=== PATIENT | male | born 1965 | race Caucasian/White ===

== ENCOUNTER 2019-03-05 00:13 | Emergency (ER) | payer BC, OTHER ==
[~2019-03-05] VITALS: Ht 172.7 cm; Wt 104.4 kg
[2019-03-05 00:18] VITALS: BP 153/98; PULSE 84; RESP 18; Ht 172.7 cm; Wt 104.4 kg
--- NOTE | 2019-03-07 15:03 | ERD ---
ER Documentation Chief Complaint Chief Complaint low back pain x 2 months, also c/o blood in urine HPI 53yo M presents with complaint of hematuria and low back pain off and on x 2 months. Last episode of hematuria this morning. Pt notes hx of previous kidney stones 5 years ago and expresses concern over possible stone. Pt denies current back pain, but notes each episode is approximately a 5/10 in intensity. Pt denies any prostate hx, hx of DM, or hx of malignancy or cancer. Denies fevers, chills, SOB, dizziness, vomiting, or diarrhea. ROS All systems reviewed and are negative except as per history of present illness. Allergies Allergies: Coded Allergies: No Known Drug Allergies (Verified Allergy, Unknown, 03/05/19) PMhx/Soc Medical and Surgical Hx: pt denies Surgical Hx Hx Cardiac Disorders: Yes (HTN) Hx Alcohol Use: No Hx Substance Use: No Hx Tobacco Use: No Smoking Status: Never smoker FmHx Family History: No diabetes, No coronary disease, No other Physical Exam Vitals Vital Signs Date Temp Pulse Resp B/P (MAP) Pulse Ox O2 O2 Flow FiO2 Time Delivery Rate 03/05/19 97.8 84 18 153/98 97 00:18 (116) Physical Exam GEN: Alert and coherent. Well appearing, non-toxic. No acute distress. HEAD: Normocephalic, atraumatic. EYES: EOMI. PERRL. No conjunctival injection. No scleral icterus. No Discharge ENT: Nasal passages patent. Moist mucous membranes. No erythema or tonsillar exudates. NECK: Supple. Full range of motion. Trachea midline. No lymphadenopathy. RESP: No tachypnea. Clear to auscultation bilaterally. No wheezing, rales or rhonchi. No accessory muscle use. CV: Regular rate and rhythm. No murmurs, rubs, or gallops. ABD: Soft, non-distended, non-tender. No guarding. No rebound tenderness or rigidity. No masses. Positive bowel sounds in all four quadrants. BACK: Full ROM. No CVA tenderness. NEURO: Alert and oriented x3. Appropriate speech, mood and affect. Face is symmetric. Speech is normal. CN II-XII intact. Moves all extremities equally. Ambulates with a strong, steady gait. Result Diagram: 03/05/19 0140 03/05/19 0140 Results 24 hrs Laboratory Tests Test 03/05/19 01:40 White Blood Count 6.4 10^3/ul Red Blood Count 5.06 10^6/ul Hemoglobin 15.3 g/dl Hematocrit 44.7 % Mean Corpuscular Volume 88.3 fl Mean Corpuscular Hemoglobin 30.2 pg Mean Corpuscular Hemoglobin Concent 34.2 g/dl Red Cell Distribution Width 11.9 % Platelet Count 249 10^3/UL Mean Platelet Volume 9.9 fl Immature Granulocytes % 0.300 % Neutrophils % 31.4 % Lymphocytes % 50.5 % Monocytes % 14.5 % Eosinophils % 2.2 % Basophils % 1.1 % Nucleated Red Blood Cells % 0.0 /100WBC Immature Granulocytes # 0.020 10^3/ul Neutrophils # 2.0 10^3/ul Lymphocytes # 3.3 10^3/ul Monocytes # 0.9 10^3/ul Eosinophils # 0.1 10^3/ul Basophils # 0.1 10^3/ul Nucleated Red Blood Cells # 0.0 10^3/ul Prothrombin Time 12.1 Sec Prothrombin Time Ratio 0.9 INR International Normalized Ratio 0.89 Activated Partial Thromboplast Time 29.8 Sec Urine Color YELLOW Urine Clarity CLEAR Urine pH 6.0 Urine Specific [place] 1.023 Urine Ketones NEGATIVE mg/dL Urine Nitrite NEGATIVE mg/dL Urine Bilirubin NEGATIVE mg/dL Urine Urobilinogen 1+ mg/dL Urine Leukocyte Esterase NEGATIVE James/ul Urine Hemoglobin NEGATIVE mg/dL Urine Glucose NEGATIVE mg/dL Urine Total Protein NEGATIVE mg/dl Sodium Level 145 mmol/L Potassium Level 3.8 mmol/L Chloride Level 106 mmol/L Carbon Dioxide Level 26 mmol/L Anion Gap 13 Blood Urea Nitrogen 15 mg/dl Creatinine 0.73 mg/dl Est Glomerular Filtrat Rate mL/min > 60 mL/min Glucose Level 118 mg/dl Calcium Level 9.7 mg/dl Total Bilirubin 0.7 mg/dl Direct Bilirubin 0.00 mg/dl Indirect Bilirubin 0.7 mg/dl Aspartate Amino Transf (AST/SGOT) 32 IU/L Alanine Aminotransferase (ALT/SGPT) 33 IU/L Alkaline Phosphatase 103 IU/L Total Protein 8.0 g/dl Albumin 4.5 g/dl Globulin 3.50 g/dl Albumin/Globulin Ratio 1.28 Lipase 67 U/L Procedures/MDM PROCEDURE: CT ABDOMEN/PELVIS WITHOUT CONTRAST FINDINGS: There is mild bibasilar subsegmental atelectasis. There is no evidence for significant pleural effusion. The liver has a normal size and contour without focal areas of abnormal density. No intrahepatic nor extrahepatic biliary ductal dilatation is seen. The gallbladder demonstrates no wall thickening nor marielena cholecystic fluid. No biliary stones are evident. The pancreas is without areas of abnormal attenuation. The spleen is identified and has a normal size without abnormal density. The adrenal glands are unremarkable. The kidneys are without abnormal density. No hydroureteronephrosis nor nephroureterolithiasis is evident. The urinary bladder contains urine. There is no evidence for bowel obstruction. There are a few small diverticula within the ascending colon without surrounding inflammatory changes. The appendix is visualized and is without abnormal thickening or surrounding inflammatory reaction. There is no significant pelvic free fluid. The prostate is not enlarged however there are small central calcifications within it. The aortoiliac vessels are without aneurysmal dilatation. Degenerative changes are seen within the spine. IMPRESSION: 1. Minimal ascending colon diverticulosis. 2. No CT evidence for appendicitis. 3. Degenerative changes within the spine. MDM: This is a 53yo M who presents to the ED for low back pain and blood in urine off and on x 2 months. On exam no CVA tenderness and Urinalysis unremarkable for Hematuria. CT imaging negative for nephrolithiasis, and shows minimal diverticulosis of the ascending colon. Given normal vitals, unremarkable exam, negative lab findings, and non-emergent CT findings, pt is stable for discharge with outpatient management. Pt counseled regarding diet. Advised to f/u PCP for management of diverticulosis and need for possible referral to urology for management of hematuria if continues. Pt expressed verbal understanding and agreement to treatment plan. All questions addressed and answered. Departure Diagnosis: Primary Impression: Diverticulosis Condition: Stable Patient Instructions: Diverticulosis [facility] Usted se dao hecho un examen mdico de control que le indica que no est en angel condicin que requiera tratamiento urgente en el Departamento de Emergencia. Un estudio ms profundo y el tratamiento de barnes condicin pueden esperar sin ningn riesgo hasta que usted sea atendida/o en el consultorio de barnes mdico o angel clnica. Es responsabilidad suya arreglar angel karri para el seguimiento del mari. MANEJO DE CONDICIONES NO URGENTES EN EL FUTURO 1) Si usted tiene un mdico de atencin primaria: Usted debera llamar a barnes mdico de atencin primaria antes de venir al departamento de emergencia. Despus de las horas de consultorio, barnes doctor o barnes asociado/a est disponible por telfono. El mdico o enfermero de melissa en el servicio telefnico puede asesorarle por yesenia medio para atender el problema, o mari contrario se puede programar angel karri. 2) Si usted no tiene un mdico de atencin primaria: Llame al mdico o clnica de referencia que aparece abajo lazara las horas de consultorio para hacer angel karri para que le vean. CLINICAS: [facility] [phone] [id number] [facility] [phone] [address] [facility] [phone] [facility] [phone] [place] [id number] [phone] [facility]. [phone] ELDA HOLLIS PA-C Mar 07, 2019 15:03
== END 2019-03-05 03:26 | disposition home or self-care (01) ==
LOC: FTE 00:13
DX: K57.30 Diverticulosis of large intestine without perforation or abscess without bleeding (principal); I10 Essential (primary) hypertension; R31.9 Hematuria, unspecified
CPT/HCPCS: 36415; 74176; 80053; 81003; 83690; 85025; 85610; 85730; Z7502